=== PATIENT | male | born 1970 | race Caucasian/White ===

== ENCOUNTER → 2018-04-13 | Outpatient (CLI) | payer BC ==
--- NOTE | 2018-04-13 12:52 | Diagnostic Imaging Report ---
EXAMINATION: Ultrasound of the scrotum. INDICATION: Testicular pain. Spectral and color-flow imaging of the testicles was performed. There are no prior studies available for comparison. FINDINGS: Both testicles are identified. The testicles are normal in size with the right testicle measuring 4.3 x 2.1 x 2.8 cm and the left testicle estimated to be 4.6 x 2.3 x 3.0 cm. There is no evidence for a solid testicular mass and there is no sign of torsion. There is no evidence for epididymitis either although there does appear to be a 1.1 x 0.6 x 1.2 cm cyst associated with the epididymis on the right. This cyst has a generally benign appearance. There is no hydrocele formation, but there does appear to be a varicocele on the right. During the course of the examination, a 1.3 x 0.6 x 1.3 cm area of slightly diminished echogenicity was seen within the wall of the scrotum. This is just beneath the skin surface. According to our technologist, this did seem to communicate with the skin surface. This could represent a small focal inflammatory/infectious process of the scrotal wall. Clinical follow-up is recommended. IMPRESSION: 1. There is no evidence for a solid testicular mass and there is no sign of torsion. 2. There is a small cyst associated with the epididymis on the right and there does appear to be a right-sided varicocele as well. 3. The small area of altered echogenicity within the wall of the scrotum does suggest an inflammatory/infectious process. Clinical follow-up is recommended. Dictated by: Dictated on workstation # [id number]
== END ==
LOC: RAD 10:40
PROVIDERS: ATTEND Nurse Practitioner Family
DX: N50.3 Cyst of epididymis (principal)
CPT/HCPCS: 76870

== ENCOUNTER 2020-03-23 10:12 | Outpatient (CLI) | payer BC ==
[~2020-03-23] VITALS: Ht 185.5 cm; Wt 122.7 kg
[2020-03-23] MEDS ORDERED: TEST200V21 IM (10:40)
[2020-03-23] MEDS ORDERED: NEBI5TAB8 PO (10:40)
== END 2020-03-23 16:16 ==
LOC: PREOP 10:12
PROVIDERS: ATTEND Internal Medicine
DX: Z01.818 Encounter for other preprocedural examination (principal); Z11.59 Encounter for screening for other viral diseases
CPT/HCPCS: 87635

== ENCOUNTER 2020-04-03 07:28 | Outpatient (RCR) | payer BC ==
[~2020-04-03] VITALS: Ht 185 cm; Wt 129.1 kg
[~2020-04-03 07:28] MED LIST: NEBI5TAB8 PO; TEST200V21 IM
[2020-04-03 12:51] VITALS: BP 122/80
[2020-04-03 13:24] LABS: BASOPHILS % (AUTO) 0 % (0-10); EOSINOPHILS # (AUTO) 0.1 10^3/uL (0.0-0.3); EOSINOPHILS % (AUTO) 2 % (0-10); HEMATOCRIT 42 % (40-54); HEMOGLOBIN 14.2 G/DL (13.3-17.7); LYMPHOCYTES # (AUTO) 1.7 X 10^3 (1.0-4.0); LYMPHOCYTES % (AUTO) 26 % (12-44); MEAN CORPUSCULAR HEMOGLOBIN 29 PG (25-34); MEAN CORPUSCULAR HGB CONC 34 G/DL (32-36); MEAN CORPUSCULAR VOLUME 86 FL (80-99); MEAN PLATELET VOLUME 9.4 FL (7.4-10.4); MONOCYTES # (AUTO) 0.6 X 10^3 (0.0-1.0); MONOCYTES % (AUTO) 9 % (0-12); NEUTROPHILS # (AUTO) 4.2 X 10^3 (1.8-7.8); NEUTROPHILS % (AUTO) 63 % (42-75); PLATELET COUNT 270 10^3/uL (130-400); RED CELL DISTRIBUTION WIDTH 13.6 % (10.0-14.5); WHITE BLOOD COUNT 6.6 10^3/uL (4.3-11.0)
== END 2020-04-03 16:00 | disposition home or self-care (01) ==
LOC: PREOP 07:28
PROVIDERS: ATTEND Surgery
DX: Z01.812 Encounter for preprocedural laboratory examination (principal); Z11.59 Encounter for screening for other viral diseases; D36.9 Benign neoplasm, unspecified site; Q89.8 Other specified congenital malformations
CPT/HCPCS: 36415; 85025; 86850; 86900; 86901; 87081; 87635

== ENCOUNTER 2020-04-08 10:15 | Inpatient (IN) | payer BC ==
[2020-04-08] VITALS (11 sets, daily range): BP systolic 117–150; BP diastolic 62–96
[~2020-04-08] VITALS: Ht 185 cm; Wt 129.1 kg
[2020-04-08] MEDS ORDERED: LACTATED RINGERS 1,000 ML IV PRN (10:21)
--- NOTE | 2020-04-08 10:28 | Progress Note-Pre Operative ---
Pre-Operative Progress Note H&P Reviewed The H&P was reviewed, patient examined and no changes noted. Time Seen by Provider: 10:25 Date H&P Reviewed: April 08, 2020 Time H&P Reviewed: 10:26 Pre-Operative Diagnosis: Large rectal polyp DENISE JAVIER DO April 08, 2020 10:28
[2020-04-08] MEDS ORDERED: CLINDAMYCIN 600 MG/50 ML IVPB 50 ML IV ONE (10:30)
[2020-04-08] MEDS ORDERED: SEVOFLURANE (ULTANE) 15 ML INHAL SOLN ONE ×4 (10:50→10:59)
[2020-04-08] MEDS ORDERED: ROCURONIUM 10 MG/ML 5 ML SYRINGE IV ONE ×2 (10:50→14:17)
[2020-04-08] MEDS ORDERED: proPOfol 200 MG/20 ML (DIPRIVAN) VIAL IV ONE (10:50)
[2020-04-08] MEDS ORDERED: LIDOCAINE PF 2% 5 ML (XYLOCAINE) VIAL ONE (10:50)
[2020-04-08] MEDS ORDERED: fentaNYL INJECTION 100 MCG/2 ML AMP ONE ×2 (10:51→13:53)
[2020-04-08] MEDS ORDERED: MIDAZOLAM 2 MG/2 ML (VERSED) VIAL ONE (10:51)
[2020-04-08] MEDS: LACTATED RINGERS 1,000 ML IV PRN ×2 (10:56→13:20)
[2020-04-08] MEDS ORDERED: BUPIVACAINE 0.5% 30 ML (SENSORCAINE) VIAL ONE ×2 (10:59→14:15)
[2020-04-08] MEDS ORDERED: BUP/EPI 0.5% 1:200,000 (SENSORCAINE) 30 ML VIAL ONE (11:04)
--- NOTE | 2020-04-08 13:40 | NUR ---
REPORT RECEIVED FROM THERESA YU RN
[2020-04-08] MEDS ORDERED: ATROPINE 1.2 MG/3 ML (0.4 MG/ML) SYR ONE (14:15)
[2020-04-08] MEDS ORDERED: MEPERIDINE (DEMEROL) INJ 50 MG/ML IVP ONE (14:30)
[2020-04-08] MEDS ORDERED: ONDANSETRON 4 MG/2 ML (SDV) Z0FRAN IVP PRN ×2 (14:30→14:45)
[2020-04-08] MEDS ORDERED: fentaNYL INJECTION 100 MCG/2 ML AMP IVP ONE (14:30)
[2020-04-08] MEDS ORDERED: morphine INJ 10 MG/ML 1ML (SYR OR VIAL) IVP ONE (14:30)
[2020-04-08] MEDS ORDERED: morphine INJ 10 MG/ML 1ML (SYR OR VIAL) IVP PRN (14:45)
[2020-04-08] MEDS ORDERED: KETOROLAC 30 MG/ML VIAL ONE (14:53)
[2020-04-08] MEDS: KETOROLAC 30 MG/ML VIAL IVP SCH ×2 (15:00→20:37)
[2020-04-08] MEDS: LACTATED RINGERS 1,000 ML IV SCH (15:55)
--- NOTE | 2020-04-08 16:00 | NUR ---
IS PLACED AT BEDSIDE AND PT INFORMED ON PROPER USE, PT DEMONSTRATED TECHNIQUE CORRECTLY.
--- NOTE | 2020-04-08 16:10 | NUR ---
NELLA PUGA admitted to room 408-1, with an admitting diagnosis of colectomy, on 04/08/20 from PACU via stretcher, accompanied by staff. NELLA PUGA introduced to surroundings, call light, bed controls, phone, TV, temperature control, lights, meal times, smoking policy, visitor policy, side rail policy, bathrooms and showers. Patient Rights given to patient in the handbook. NELLA PUGA verbalizes understanding that [facility] is not responsible for the loss or damage to any personal effects or valuables that are kept in the patients possession during their hospitalization. The following Patient Care Plans were discussed with the patient: Discharge Planning, pain management, dehydration, and medications. NELLA PUGA verbalizes understanding of Interdisciplinary Patient Education. Patient and/or family were informed about the Rapid Response Team and its purpose.
[2020-04-08] MEDS ORDERED: morphine INJ 4 MG/ML 1 ML (VIAL/SYRINGE) IV PRN (16:15)
[2020-04-08] MEDS: metroNIDAZOLE 500MG/100ML IVPB 100 ML IV SCH (16:50)
--- NOTE | 2020-04-08 17:55 | NUR ---
PT AMBULATING IN [facility] WITH STAFF
--- NOTE | 2020-04-08 20:29 | OPERATIVE REPORT ---
DATE OF SERVICE: PREOPERATIVE DIAGNOSIS: Large colon polyp. POSTOPERATIVE DIAGNOSIS: Large colon polyp, pending pathology. PROCEDURE: Laparoscopic low anterior resection. SURGEON: Kevin Hanson DO ACTIVATED SLUDGE OPERATOR: Kiel Agrawal DO. ANESTHESIA: General endotracheal tube. SPECIMEN: Portion of rectum. BLOOD LOSS: Less than 50 mL. FLUIDS: Per anesthesia. POSTOPERATIVE CONDITION: Stable. INDICATION FOR PROCEDURE: The patient is a 49-year-old male who had a colonoscopy and found a large polyp, unable to remove it with a colonoscopy, needed to have a colon resection to remove this. FINDINGS: The patient had a large polyp that was a little low in the rectum, removed and sent to pathology. PROCEDURE NOTE: After informed consent was obtained, the patient was brought to the operating room, placed on the table in the lithotomy position. He was then sterilely prepped and draped in normal fashion. I started below the umbilicus. I made an incision with #15 blade, carried down through the skin into subcutaneous tissue, then deepened down to subcutaneous tissue with Bovie electrocautery down to fascia. Fascia was incised with Bovie electrocautery, bluntly entered the abdomen, swept a finger around, I then placed a finger to protect the bowel and then increased incisions inferiorly down about 6 cm and up to just below the umbilicus just enough to able to get my hand in and then placed a wound protector and Gelport. Next, created pneumoperitoneum and I then placed a 12 mm port in the left lower quadrant with local lidocaine, 11 blade for stab incision and VersaStep system, all done under direct visualization as well as placing one 5 mm trocar port placed in the right lower quadrant and VersaStep system, all done under direct visualization. At this point, then started taking down some adhesions along the sigmoid colon to be able to free this up and then scored down along the sigmoid and rectum and then going through the peritoneal reflection to free up the rectum, could see the tattooing; freed up on both sides with spatula Bovie electrocautery scoring the peritoneum, then able to gently get around. Also took the fat off the top of the rectum with spatula Bovie cautery and once I was able to get finger around, removed the Gelport, used a Noriega to hold the area up and then placed a contour stapler across the distal portion of the rectum, able to get below the mass, clamped, held for 30 seconds and fired, held for 20 seconds and then released and then started taking the low rectal stump and sigmoid up using LigaSure to take small bites, clamping and coagulating across the mesentery thereby taking the mesentery up and then had GelPort to do this and then took the Gelport off, able to pull this up and then make a defect in the mesentery with Bovie electrocautery as well as blunt dissection up above and proximal to the mass and then placed another contour stapler clamp and fired and transected and then continued to take the mesentery down with the LigaSure. Once this was completely taken off, then placed a pursestring applicator, cut off the distal portion of the cuff, distal end of the proximal portion of sigmoid and then placed a 29 ILS anvil, sutured this in place and then dropped this back into the abdomen. I then went down below, dilated the rectum with 25, 28 and 31 rectal dilators and then inserted the 29 ILS stapler to the distal portion of the anastomosis and then advanced the trocar through the distal portion of the anastomosis, came out nicely, attached the anvil and I then tightened this down into the correct position all the way tied in the green area, held for 30 seconds, then clamped and fired, held for 20 seconds and then turned 3/4 of the turn, removed; and then able to easily remove this stapler. Two good donuts and I then inserted a rigid sigmoidoscope gently just into the rectal vault, placed some saline in the pelvis and then Dr. Agrawal clamped the sigmoid and we insufflated, good insufflation, no leakage, no air bubble seen and so at this point, then allowed this air to escape. Suctioned out the fluid, took a picture of the anastomosis. I then elected to close the midline incision, closed with #1 double stranded PDS suture running from the inferior portion to superior portion, tying to itself, copiously irrigated incisions with normal saline and then took a picture of the closure, it looked good. Allowed the pneumoperitoneum to escape and then closed the 12 mm and 5 mm incisions with martina and then closed the midline incision with martina. Area was cleaned and dried, dressing placed. The patient tolerated the procedure. Sponge, instrument and needle count correct at the end of the case. Dr. Agrawal assisted in this case helping to make incisions, close incisions, identify anatomy and hold anatomy out of the way. Job ID: [id number] DocumentID: [id number] Dictated Date: 04/08/2020 14:33:22 Stakeholder Manager Date: 04/08/2020 20:28:55 Dictated By: DO OLEKSANDR SAM
[2020-04-08] MEDS: CLINDAMYCIN 600 MG/50 ML IVPB 50 ML IV SCH (20:36)
[2020-04-09] MEDS: LACTATED RINGERS 1,000 ML IV SCH ×2 (01:02→06:40)
[2020-04-09] MEDS: metroNIDAZOLE 500MG/100ML IVPB 100 ML IV SCH (01:05)
[2020-04-09] MEDS: CLINDAMYCIN 600 MG/50 ML IVPB 50 ML IV SCH (03:26)
[2020-04-09] MEDS: KETOROLAC 30 MG/ML VIAL IVP SCH ×4 (03:26→19:36)
[2020-04-09 04:25] VITALS: BP 111/61
[2020-04-09 08:11] VITALS: BP 118/79
[2020-04-09] MEDS: PANTOPRAZOLE 40 MG (PROTONIX) VIAL IVP SCH (08:53)
[2020-04-09] MEDS: ACETAMINOPHEN 500 MG TAB (TYLENOL) PO SCH ×5 (09:02→22:05)
--- NOTE | 2020-04-09 09:33 | NUR ---
PT AMBULATING IN [facility], COMPLETED 2 LAPS AROUND UNIT.
--- NOTE | 2020-04-09 11:04 | NUR ---
RD ASSESSMENT PMHx: HTN; s/p colon resection PT INTERACTION: Pt was awake and pleasant during dietary consult for MST score. Pt states current appetite is okay, but was good prior to admit. Note avg PO intake 100% x2meal, per chart review. Pt states following a regular diet at home and has no issues with chewing/swallowing food. Pt states no recent issues with nausea, vomiting, constipation, or diarrhea, and that his last BM was 04/09 which "had a little bit of blood and a little bit of stool." Note pt not currently on bowel regimen per chart review. Pt states recent 20# intentional wt loss. "[facility], so I'm sure I gained some of it back." Note recent 14# wt gain x12d per chart review. Upon visual assessment, pt appears to be well nourished with no visible signs of muscle/fat wasting, and a BMI of 37.7. Given PO intake, wt hx, and visual assessment, pt does not meet criteria for malnutrition per ASPEN guidelines at this time. ABNORMAL NUTRITION-RELATED LAB VALUES No Labs Drawn Est. kcal needs: 1812-9428 kcal | 15-18 kcal/kg Est. Pro needs: 103-129 g Pro | 0.8-1.0 g Pro/kg PES STATEMENT: Given current PO intake, no nutrition diagnosis at this time (NO-1.1) INTERVENTION: Continue with current diet order of Clear Liquid diet. Would recommend advancing diet when medically able and as tolerated. Pt would likely benefit from high protein nutrition supplementation upon diet advancement. Will continue to follow and reassess as pt needs, intake, and status change. MONITOR/EVALUATE: PO Intake; Plan of Care; Hydration Status; Weight Status; Lab Values Betito Hampton, MS, RD, LD
[2020-04-09 11:39] VITALS: BP 136/85
--- NOTE | 2020-04-09 14:25 | Anesthesia-General Post-Op ---
General Patient Condition Mental Status/LOC: Same as Preop Cardiovascular: Satisfactory Nausea/Vomiting: Absent Respiratory: Satisfactory Pain: Controlled Complications: Absent Post Op Complications Complications None Follow Up Care/Instructions Patient Instructions None needed. Anesthesia/Patient Condition Patient Condition Patient is doing well, no complaints, stable vital signs, no apparent adverse anesthesia problems. No complications reported per nursing. [place] [facility] [place]: DIANE Shukla CRNA April 09, 2020 14:25
[2020-04-09] MEDS ORDERED: ENOXAPARIN 40 MG/0.4 ML (LOVENOX) SYR SC SCH (14:45)
[2020-04-09 16:00] VITALS: BP 139/79
[2020-04-09 19:02] VITALS: BP 131/78
--- NOTE | 2020-04-09 20:07 | Progress Note - Surgery ---
Subjective Date Seen by a Provider: April 09, 2020 Time Seen by a Provider: 16:00 Subjective/Events-last exam Patient's doing well. He's been ambulating. Patient's a little bit more sore today but his pain is controlled. He's passed a very minimal amount of flatus at this time. No bowel movement. He is using his incentive spirometer some. He is tolerating his diet at this time. He denies any nausea vomiting fever sweats chills shortness of breath or chest pain. Objective Exam Vital Signs Date Time Temp Pulse Resp B/P (MAP) Pulse Ox O2 Delivery O2 Flow Rate FiO2 04/09/20 19:36 36.7 04/09/20 19:02 36.7 72 17 131/78 (95) 94 Room Air 04/09/20 16:00 37.0 83 15 139/79 (99) 94 Room Air 04/09/20 11:39 36.4 70 18 136/85 (102) 99 NIV CPAP 04/09/20 08:11 36.4 81 18 118/79 (92) 96 NIV CPAP 04/09/20 07:58 Room Air 04/09/20 04:25 36.8 66 16 111/61 (78) 93 NIV CPAP 04/08/20 23:45 36.4 70 16 119/62 (81) 96 NIV CPAP 04/08/20 20:32 36.7 82 15 117/69 (85) 96 Room Air 04/08/20 20:30 96 Room Air I & O 04/09/20 07:00 Intake Total 2430 ml Output Total 2590 ml Balance -160 ml Capillary Refill : Less Than 3 SecondsLess Than 3 Seconds General Appearance: No Apparent Distress HEENT: PERRL/EOMI Neck: Non Tender, Supple Respiratory: Chest Non Tender, No Accessory Muscle Use, No Respiratory Distress Cardiovascular: Regular Rate, Rhythm Gastrointestinal: soft, tenderness (Incisional, no signs of infection clean dry and intact) Extremity: Normal Inspection Neurologic/Psychiatric: Alert, Oriented x3 Skin: Normal Color, Warm/Dry Lymphatic: No Adenopathy Results Lab Laboratory Tests 04/09/20 08:15: Creatinine 1.12 Assessment/Plan Assessment/Plan Assessment/Plan Status post low anterior resection Patient encouraged to use incentive spirometer more frequently Patient continue ambulating Pain control Home soon Clinical Quality Measures DVT/VTE Risk/Contraindication: Risk Factor Score Per Nursin RFS Level Per Nursing on Admit: 2=Moderate JIM ESCOBEDO DO April 09, 2020 20:07
[2020-04-10 00:44] VITALS: BP 130/82
[2020-04-10 04:00] VITALS: BP 129/75
[2020-04-10] MEDS: ACETAMINOPHEN 500 MG TAB (TYLENOL) PO SCH (04:28)
[2020-04-10] MEDS: KETOROLAC 30 MG/ML VIAL IVP SCH ×2 (04:28→08:47)
[2020-04-10 05:23] VITALS: BP 129/75
[2020-04-10 08:32] VITALS: BP 146/81
[2020-04-10] MEDS: PANTOPRAZOLE 40 MG (PROTONIX) VIAL IVP SCH (08:47)
--- NOTE | 2020-04-10 12:16 | Progress Note - Surgery ---
Subjective Time Seen by a Provider: 12:09 Subjective/Events-last exam Pt seen and examined, states pain is well controlled and he had a BM this am. Review of Systems Pulmonary: No Dyspnea, No Cough Cardiovascular: No: Chest Pain, Palpitations Gastrointestinal: No: Nausea, Vomiting, Abdominal Pain Objective Exam Vital Signs Date Time Temp Pulse Resp B/P (MAP) Pulse Ox O2 Delivery O2 Flow Rate FiO2 04/10/20 08:57 96 Room Air 04/10/20 08:32 36.5 79 19 146/81 (102) 96 Room Air 04/10/20 05:23 36.7 84 20 129/75 (93) 95 Room Air 04/10/20 05:00 36.7 04/10/20 05:00 36.7 04/10/20 04:28 36.0 04/10/20 04:28 36.0 04/10/20 04:00 36.7 84 20 129/75 (93) 95 Room Air 04/10/20 00:44 36.0 73 18 130/82 (98) 98 Room Air 04/09/20 20:30 94 Room Air 3.00 04/09/20 20:06 36.7 04/09/20 19:36 36.7 04/09/20 19:02 36.7 72 17 131/78 (95) 94 Room Air 04/09/20 16:00 37.0 83 15 139/79 (99) 94 Room Air I & O 04/10/20 07:00 Intake Total 3236 ml Output Total 3650 ml Balance -414 ml Capillary Refill : Less Than 3 SecondsLess Than 3 Seconds General Appearance: No Apparent Distress HEENT: PERRL/EOMI Respiratory: Chest Non Tender, No Accessory Muscle Use, No Respiratory Distress Cardiovascular: Regular Rate, Rhythm, No Murmur Gastrointestinal: soft, tenderness (Incisional, no signs of infection clean dry and intact) Assessment/Plan Assessment/Plan Assessment/Plan S/P LAR D/C IV and D/C home Clinical Quality Measures DVT/VTE Risk/Contraindication: Risk Factor Score Per Nursin RFS Level Per Nursing on Admit: 2=Moderate DENISE JAVIER DO April 10, 2020 12:16
[2020-04-10] MEDS ORDERED: KETO10TA PO (12:18)
--- NOTE | 2020-04-10 12:19 | Discharge Inst-Surgical ---
Discharge Inst-Surgical Depart Medication/Instructions New, Converted or Re-Newed RX: RX Given to Pt/Family Patient Instructions Follow up Appt: Make appointment for 1 week. [phone] Instructions: No lifting greater than 20 pounds. No strenuous activity. May shower in 24 hours, no tub bath or soaking. Use incentive spirometer at home as directed. No Smoking Skin/Wound Care: May remove bandages in am. You need to leave the Dermabond on incision it will fall off on it's own. Symptoms to Report: Appetite Changes, Extremity Discoloration, Numbness/Tingling, Swelling Increased, Bleeding Excessive, Eyesight Changes, Pain Increased, Urine Color Change, Constipation(Persistent), Fever over 101 degree F, Pain/Pressure in chest, Urinating Difficulty, Cough Up/Vomit Blood, Heart Beat Irreg/Pounding, Pain/Pressure in jaw, Cramps in feet or legs, Lightheadedness, Pain/Pressure in shoulder, Diarrhea(Persistent), Memory Changes Suddenly, Questions/Concerns, Weight gain consecutive days, Dizziness/Fainting, Nausea/Vomiting, Shortness of Breath, Weight gain over 2 pounds If questions or concerns contact your physician Or seek help at emergency department. Activity Activity as Tolerated: Yes Activity Instructions: Avoid Stress to Incision Driving Instructions: You May Drive Diet Discharge Diet: No Restrictions Diet After 24 Hours: Clear Liquid if Nauseous If Any Problems/Questions/Issu: Contact Your Physician, Go to Emergency Room Skin/Wound Care Infection Signs and Symptoms: Increased Redness, Foul Odor of Wound, Increased Drainage, Skin Itchy or Has a Rash, Increased Swelling, Temperature Above 101 F Bathing Instructions: Shower Stitches/Ethel/Dermabond Dis: Care of DENISE Cortes DO April 10, 2020 12:19
[2020-04-10 12:37] VITALS: BP 146/81
== END 2020-04-10 13:20 | disposition home or self-care (01) | DRG 331 ==
LOC: 4TH 10:15 → SURG 10:16 → 4TH 15:38
PROVIDERS: ADMIT Surgery; ATTEND Surgery
PROC: 0DBN0ZZ Excision of Sigmoid Colon, Open Approach (ICD-10-PCS; 2020-04-08)
PROC: 0DBP0ZZ Excision of Rectum, Open Approach (ICD-10-PCS; principal; 2020-04-08 12:42)
DX: D12.7 Benign neoplasm of rectosigmoid junction (principal); R19.7 Diarrhea, unspecified; I10 Essential (primary) hypertension; G47.33 Obstructive sleep apnea (adult) (pediatric); E66.9 Obesity, unspecified; Z68.37 Body mass index [BMI] 37.0-37.9, adult
CPT/HCPCS: 36415; 82565; 86850; 86900; 86901; 88309

== ENCOUNTER → 2021-02-05 | Outpatient (CLI) | payer BC ==
[~2021-02-05] VITALS: Ht 185 cm; Wt 125.0 kg
[~2021-02-05] MED LIST changes: +BAMLANIVIMAB (NON FORM) 700 MG in NS (IVPB) 100 ML IV ONE; +EPINEPHrine INJECTION 1 MG/ML AMP IM PRN; +KETO10TA PO; +diphenhydrAMINE 50 MG/ML INJ (BENADRYL) IV PRN
[2021-02-05 07:57] VITALS: BP 154/92
[2021-02-05 09:11] VITALS: BP 139/86
== END ==
LOC: INFUSION 07:58
PROVIDERS: ATTEND Family Medicine
DX: Z23 Encounter for immunization (principal); U07.1 COVID-19

== ENCOUNTER 2022-12-22 11:52 | Outpatient (CLI) | payer BC ==
[~2022-12-22] VITALS: Ht 185 cm; Wt 136.4 kg
[~2022-12-22 11:52] MED LIST changes: -BAMLANIVIMAB (NON FORM) 700 MG in NS (IVPB) 100 ML IV ONE; -EPINEPHrine INJECTION 1 MG/ML AMP IM PRN; -diphenhydrAMINE 50 MG/ML INJ (BENADRYL) IV PRN
[2022-12-22] MEDS ORDERED: AMLO-250 PO (12:36)
== END 2022-12-22 12:42 | disposition home or self-care (01) ==
LOC: PREOP 11:52
PROVIDERS: ATTEND Internal Medicine
DX: Z01.818 Encounter for other preprocedural examination (principal)

== ENCOUNTER 2022-12-30 07:39 | Day surgery (SDC) | payer BC ==
--- NOTE | 2022-12-23 00:48 | HISTORY AND PHYSICAL ---
COLONOSCOPY HISTORY AND PHYSICAL DATE OF ADMISSION: 12/30/2022 HISTORY OF PRESENT ILLNESS: The patient is a 52-year-old white male referred by Dr. Colvin for surveillance colonoscopy. On colonoscopy in 03/2020, he had a very large villous adenoma with dysplasia present 20 cm from the anal verge in the distal sigmoid colon extending into the rectosigmoid junction, could not rule out the possibility of malignancy, it was too large for endoscopic removal reliably. He was referred for surgery, which was performed by Dr. Hanson, no evidence for malignancy was noted. He reports that he was having diarrhea previous to surgery, but this is all resolved post-surgery. He denied any complications with surgery. He has felt well, had no abdominal pain, no bright red blood per rectum or melena. He denied any significant change in weight, but over the last 3 years since his last office visit, he is up 29.8 pounds. PAST MEDICAL HISTORY: Other than above, significant for obesity with obstructive sleep apnea, hypertension, and erectile dysfunction. He is faithful with CPAP utilization at night. FAMILY HISTORY: Father at age of 80 of complications of diverticulitis related surgery. Mother of pneumonia following an NE at the age of 78 with no known history of colon cancer that he is aware of in the family. 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 PAST SURGICAL HISTORY: Other than his partial left colectomy, he has had right inguinal hernia repair as a child. REVIEW OF SYSTEMS: CONSTITUTIONAL: Denies night sweats, chills, fever, change in weight. PULMONARY: Denies cough, wheezing or shortness of breath. GASTROINTESTINAL: As noted in the HPI. CARDIOVASCULAR: Denies chest discomfort. History of coronary artery disease, orthopnea, PND, pedal edema or syncope. PHYSICAL EXAMINATION: GENERAL: Reveals a pleasant, overweight white male in no acute distress, weighing 300 pounds. VITAL SIGNS: Blood pressure 122/78. HEENT: Unremarkable. Sclerae nonicteric. Oral cavity reveals a Mallampati 3 pharyngeal configuration with no erythema. CARDIOVASCULAR: Reveals a regular rate and rhythm without murmur, S3, or S4. CHEST: Clear to auscultation. ABDOMEN: Soft, supple without mass, organomegaly, or tenderness. EXTREMITIES: No cyanosis, clubbing or edema. ASSESSMENT AND PLAN: The patient is being set up for a surveillance colonoscopy due to past history of large distal sigmoid villous adenoma requiring partial left hemicolectomy. Prep instructions were given. Questions were answered. Electronic medical record was reviewed. Thank you for the referral of this pleasant gentleman. Job ID: [id number] DocumentID: [id number] Dictated Date: 12/21/2022 15:41:43 Business Center Attendant Date: 12/21/2022 16:01:00 Dictated By: ALEXA PRESLEY MD MTDD
[~2022-12-30] VITALS: Ht 185 cm; Wt 136.4 kg
[~2022-12-30 07:39] MED LIST changes: +AMLO-250 PO
[2022-12-30] MEDS ORDERED: LACTATED RINGERS 1,000 ML IV STA (07:46)
--- NOTE | 2022-12-30 07:52 | Pre-Op Note & Conscious Sedat ---
Pre-Operative Progress Note Date H&P Reviewed: Dec 30, 2022 Time H&P Reviewed: 07:51 History & Physical: H&P Reviewed, Patient Examed, No changes noted Pre-Op Diagnosis: history of villous adenoma sigmoid colon Conscious Sedation Pre-Proced ASA Score 3 For ASA 3 and 4: Consider anesthesia and medical clearance. Also, for patients with a history of failed moderate sedation consider anesthesia. Airway Lungs Heart ASA score ASA 1: a normal healthy patient ASA 2: a patient with a mild systemic disease (mid diabetes, controlled hypertension, obesity ASA 3: a patient with a severe systemic disease that limits activity (angina, COPD, prior Myocardial infarction) ASA 4: a patient with an incapacitating disease that is a constant threat to life (CHF, renal failure) ASA 5: a moribund patient not expected to survive 24 hrs. (ruptured aneurysm) ASA 6: a declared brain- patient whose organs are being harvested. For emergent operations, add the letter E after the classification Mallampati Classification Grade 3 Sedation Plan Analgesia, Amnesia, Plan communicated to team members, Discussed options with patient/fam, Discussed risks with patient/fam The patient is an appropriate candidate to undergo the planned procedure, sedation, and anesthesia. The patient immediately re-assessed prior to indication. ALEXA PRESLEY MD Dec 30, 2022 07:52
[2022-12-30 08:00] VITALS: BP 148/94
[2022-12-30] MEDS ORDERED: PROPOFOL INJECTION 50 ML IV ONE (08:37)
[2022-12-30 09:25] VITALS: BP 118/62
--- NOTE | 2022-12-30 09:27 | Progress Note-Post Operative ---
Post-Procedure Note Physician (s)/Occupational Health And Safety Manager (s) Physician ALEXA PRESLEY MD Pre-Procedure Diagnosis Pre-Procedure Diagnosis: history of villous adenoma sigmoid colon Post-Procedure Diagnosis Post-operative diagnosis: Prior to undergoing colonoscopy digital rectal evaluation was performed. Anal suture tone was normal and the perianal reflexes intact. No abnormalities noted on digital inspection anal canal distal rectal vault. Prostate is mildly enlarged and a nodular. The colonoscope was then inserted into the rectum and under direct physician advanced the cecum. The cecum was identified by identification of the ileocecal valve and cecal strap. Photographic documentation was obtained. A careful section was made as the colonoscope withdrawn. Colon the prep was good. Findings there are no evidence for internal or external hemorrhoids. Present in the proximal rectum were 2 diminutive polyps 1 hyperplastic which was ablated and not submitted the other was 1 cm in size adenomatous in appearance it was snared and submitted for histopathology. There was a small amount of blood loss around 1 cc estimate. The surgical margin in the distal sigmoid colon appeared unremarkable with no evidence to suggest recurrence of the large dysplastic villous adenoma. The remainder of the sigmoid colon was unremarkable. Depressed in the distal descending colon was a 3 mm sessile polyp that was biopsied and ablated with no blood loss. A similar polyp was also noted in the distal transverse colon which was biopsied and ablated with no blood loss. The remainder the transverse colon hepatic flexure ascending colon and cecum are unremarkable. A/P 1. There was no evidence of previous surgically resected large sigmoid villous adenoma. Patient did have several sessile polyps as noted above the largest one in the mid rectum was removed via snare measuring approximately a centimeter in size. We will advocate repeat surveillance colonoscopy in 1 year. This is provided there are no surprises on histopathology report. CC: ALEXA Gaona MD Dec 30, 2022 09:27
[2022-12-30 09:45] VITALS: BP 132/86
--- NOTE | 2022-12-30 09:46 | Anesthesia-General Post-Op ---
MAC Patient Condition Mental Status/LOC: Same as Preop Cardiovascular: Satisfactory Nausea/Vomiting: Absent Respiratory: Satisfactory Pain: Controlled Complications: Absent Post Op Complications Complications None Follow Up Care/Instructions Patient Instructions None needed. Anesthesiology Discharge Order Discharge Order Patient is doing well, no complaints, stable vital signs, no apparent adverse anesthesia problems. No complications reported per nursing. CARA AYALA CRNA Dec 30, 2022 09:46
== END 2022-12-30 10:10 | disposition home or self-care (01) ==
LOC: ENDO 07:39
PROVIDERS: ATTEND Internal Medicine
DX: Z12.11 Encounter for screening for malignant neoplasm of colon (principal); D12.3 Benign neoplasm of transverse colon; D12.4 Benign neoplasm of descending colon; D12.8 Benign neoplasm of rectum; G47.33 Obstructive sleep apnea (adult) (pediatric)